=== PATIENT | male | born 1985 | race Caucasian/White ===

== ENCOUNTER 2024-05-06 12:00 | Emergency (ER) | payer OTHER, SELFPAY ==
--- NOTE | ~2024-05-06 | CT_ITS ---
EXAMINATION: CT abdomen pelvis w con DATE: 05/06/2024 20:47 INDICATION: Epigastric pain TECHNIQUE: Computed tomography (CT) of the abdomen and pelvis was performed with 100 mL Omnipaque-350 intravenous contrast. Automated exposure control and iterative reconstruction technique were employe d. The dose-length product was 597.01 mGy-cm. COMPARISON: None. FINDINGS: Lower thorax: Unremarkable Liver: Normal. Biliary/Gallbladder: Gallbladder is normal. No bile duct dilation. Pancreas: No mass or duct dilation. Spleen: Normal. Adrenals:No mass. Kidneys: No suspicious mass, obstructing stone, or hydronephrosis. 6 mm nonobstructing left upper graciela e calcification. Punctate bilateral nonobstructing calculi. GI tract: No small or large bowel dilation. Normal appendix. Mesentery/Peritoneum: No ascites, mass, or free air. Retroperitoneum: No mass. Pelvis: Pelvic organs are within normal limits. Soft Tissues: Small fat-containing umbilical and left inguinal hernias. Bones: No acute osseous finding. IMPRESSION: No acute abdominopelvic process detected. Reviewed, dictated and finalized at location [facility].
[2024-05-06 12:05] VITALS: BP 131/94; PULSE 90; RESP 18; TEMP 36.3; O2SAT 99
--- NOTE | 2024-05-06 14:49 | ED.ABDPAIN ---
HPI - Abdominal Pain General Chief Complaint: Abdominal Pain <Nina Jansen PA-C - Last Filed: 05/07/24 09:33> Stated Complaint: abd pain, liver issues , kidney pain <Nina Jansen PA-C - Last Filed: 05/07/24 09:33> Time Seen by Provider: 05/06/24 14:49 <Nina Jansen PA-C - Last Filed: 05/07/24 09:33> Focused HPI: This is a 38-year-old male that presents to the emergency department with multiple complaints. Reporting epigastric pain as well as flank pain. Reports he has had issues with his kidneys and liver in the past which prompted him to be seen. Denies fevers, vomiting, or diarrhea. GENERAL: Well-appearing, well-nourished, and in no acute distress. HEAD: Normocephalic, atraumatic. CHEST: Clear to auscultation. ?No respiratory distress. HEART: Regular rate and rhythm.? NEURO: ?Alert and oriented x3. Patient screened in triage and initial orders placed.? ?Additional care and disposition to be based upon?diagnostic testing and treatment. <Nina Jansen PA-C - Last Filed: 05/07/24 09:33> History of Present Illness HPI narrative: Agree with the HPI <Jose De Jesus Gallardo MD - Last Filed: 05/06/24 22:52> Related Data Allergies/Adverse Reactions: Allergies Allergy/AdvReac Type Severity Reaction Status Date / Time codeine Allergy Unknown Verified 08/21/16 19:03 <Nina Jansen PA-C - Last Filed: 05/07/24 09:33> Review of Systems Review of Systems: All systems reviewed & are unremarkable except as noted in HPI and below <Jose De Jesus Gallardo MD - Last Filed: 05/06/24 22:52> PMFSH Past Medical History Medical History: Medical History (Updated 05/07/24 @ 09:33 by Nina Jansen PA-C) History of depression <Nina Jansen PA-C - Last Filed: 05/07/24 09:33> Exam Narrative: APPEARANCE: Well appearing, no pain, no distress, well-nourished. HEAD: normocephalic, atraumatic. EYES: PERRLA/EOMI, conjunctivae clear. NOSE: Normal no drainage EARS:TMS clear with good light reflex. THROAT: Pharynx clear, no exudate. NECK: Supple. No adenopathy, no masses. RESPIRATORY: Airway patent, respirations nonlabored. Clear to auscultation bilaterally, no rales, rhonchi, wheezing. CARDIOVASCULAR: Regular rate and rhythm without murmurs rubs or gallops. ABDOMINAL: Mild epigastric tenderness to palpation MUSCULOSKELETAL: Moves all extremities. Strength/ROM intact, No edema, No calf tenderness. NEURO: Alert. Cranial nerves II through XII intact. Good gait. Good coordination SKIN: Warm, dry. Normal Color <Jose De Jesus Gallardo MD - Last Filed: 05/06/24 22:52> Course Course Emergency Course: Patient follow up with treatment and was discharged back to [place] <Jose De Jesus Gallardo MD - Last Filed: 05/06/24 22:52> Vital Signs Vital signs: Vital Signs Temperature 97.4 F L 05/06/24 12:05 Pulse Rate 90 05/06/24 12:05 Respiratory Rate 18 05/06/24 12:05 Blood Pressure 131/94 H 05/06/24 12:05 Pulse Oximetry 99 05/06/24 12:05 Oxygen Delivery Room Air 05/06/24 12:05 Temperature 98 F 05/06/24 19:36 Pulse Rate 83 05/06/24 19:36 Respiratory Rate 16 05/06/24 19:36 Blood Pressure 106/95 H 05/06/24 19:36 Pulse Oximetry 100 05/06/24 19:36 Oxygen Delivery Room Air 05/06/24 12:05 <Nina Jansen PA-C - Last Filed: 05/07/24 09:33> Vital Signs Temperature 97.4 F L 05/06/24 12:05 Pulse Rate 90 05/06/24 12:05 Respiratory Rate 18 05/06/24 12:05 Blood Pressure 131/94 H 05/06/24 12:05 Pulse Oximetry 99 05/06/24 12:05 Oxygen Delivery Room Air 05/06/24 12:05 Temperature 98 F 05/06/24 19:36 Pulse Rate 83 05/06/24 19:36 Respiratory Rate 16 05/06/24 19:36 Blood Pressure 106/95 H 05/06/24 19:36 Pulse Oximetry 100 05/06/24 19:36 Oxygen Delivery Room Air 05/06/24 12:05 <Jose De Jesus Gallardo MD - Last Filed: 05/06/24 22:52> MDM - Abdominal Pain MDM Narrative Medical decision making narrative:
[2024-05-06 17:18] VITALS: BP 132/85; PULSE 87; RESP 18; TEMP 36.6; O2SAT 99
[2024-05-06 18:56] LABS: Basophils Absolute Auto 0.1 K/mm3 (0.0-0.1); Basophils Percent Auto 0.7 % (0.2-1.2); Eosinophils Absolute Auto 0.2 K/mm3 (0-0.3); Eosinophils Percent Auto 1.8 % (0-4.4); Hematocrit 43.4 % (42.0-52.0); Hemoglobin 14.5 g/dL (14.0-18.0); Immature Granulocyte Absolute 0.05 K/mm3 (0.00-0.031); Immature Granulocyte Percent A 0.6 % (0-0.5); Lymphocytes Absolute Auto 2.12 K/mm3 (0.9-3.2); Lymphocytes Percent Auto 24.4 % (18.3-44.2); Mean Corpuscular HGB Conc 33.4 g/dl (32-36); Mean Corpuscular Hemoglobin 29.4 pg (26-34); Mean Platelet Volume 9.1 fl (7.4-10.4); Monocytes Absolute Auto 0.6 K/mm3 (0.1-0.6); Neutrophils Absolute Auto 5.7 K/mm3 (1.3-6.7); Neutrophils Percent Auto 65.5 % (45.5-73.1); Platelet Count Result 298 k/mm3 (150-375); Red Blood Count 4.93 M/mm3 (4.6-6.20); Red Cell Distribution Width 12.8 % (11.5-14.5); White Blood Count 8.7 K/mm3 (4.5-10.0)
[2024-05-06 19:05] LABS: Alanine Aminotransferase 33 U/L (6-50); Albumin Level 4.5 g/dL (3.5-5.1); Alkaline Phosphatase 80 U/L (38-126); Anion Gap 8 mmol/L (4-12); Aspartate Amino Transferase 25 U/L (17-59); Bilirubin,Total 0.4 mg/dL (0.2-1.3); Blood Urea Nitrogen 14 mg/dL (9-20); Calcium 9.1 mg/dL (8.4-10.2); Carbon Dioxide 30 mmol/L (22-30); Chloride 101 mmol/L (98-107); Estimated CRCL calculation 80 ml/min; Estimated Glomerular Filt Rate > 60; Glucose 91 mg/dL (65-110); Lipase 58 U/L (23-300); Potassium 4.1 mmol/L (3.4-5.0); Sodium 139 mmol/L (137-145)
[2024-05-06 19:36] VITALS: BP 106/95; PULSE 83; RESP 16; TEMP 36.6; O2SAT 100
[2024-05-06] MEDS: PANTOPRAZOLE SODIUM IV 40 MG VIAL IV PUSH (19:56)
[2024-05-06] MEDS: BELLADONNA ALK/PHENOB ELIX 10 ML, MAG HYDROX/ALUMINUM HYD/SIMETH 30 ML, LIDOCAINE HCL 2... PO (19:56)
[2024-05-06] MEDS: FAMOTIDINE 20 MG/2 ML VIAL IV PUSH (19:56)
[2024-05-06 19:57] LABS: Add Urine Microscopic? NO; Appearance Urine Clear (Clear); Bilirubin Urine Negative (Negative); Blood Urine Negative (Negative); Color Urine Yellow (Yellow); Glucose Urine UA Negative (Negative); Ketones Urine Negative (Negative); Leukocyte Esterase Ur Negative LEU/UL (Negative); Nitrate Urine Negative (Negative); Protein Urine Negative (Negative); Specific Grav Ur 1.015 (1.001-1.035); Urobilinogen Urine 0.2 mg/dL (<2.0); pH Urine 6.5 (5.0-9.0)
== END 2024-05-06 21:53 | disposition home or self-care (01) ==
PROVIDERS: Physician Assistant; Emergency Provider Emergency Medicine; PCP Emergency Medicine
DX: K29.70 Gastritis, unspecified, without bleeding (principal)
CPT/HCPCS: 36415; 74177; 80053; 81003; 83690; 85025; 96374; 96375; 99284; A9270; J2470; Q9967